=== PATIENT | male | born 1970 | race Two or more races ===

== ENCOUNTER 2023-10-08 13:34 | Emergency (ER) | payer OTHER, SELFPAY ==
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
[2023-10-08 13:47] VITALS: BP 138/90; PULSE 64; O2SAT 96; BMI 34.6
[2023-10-08 13:50] VITALS: BP 133/84; PULSE 78; RESP 16; O2SAT 98
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
[2023-10-08] MEDS: Cyclobenzaprine HCl 10 MG TABLET PO (14:07)
[2023-10-08] MEDS: Acetaminophen 325 MG TABLET 975 MG PO (14:07)
--- NOTE | 2023-10-08 14:09 | PC.NURSE ---
medication administered per provider order. will reassess pain level. pt awaiting CT scan/xray at this time. call rajan placed within reach.
[2023-10-08 16:19] VITALS: BP 119/77; PULSE 68; RESP 16; O2SAT 99
[2023-10-08] MEDS: Ketorolac Tromethamine 60 MG/2 ML VIAL IM (16:24)
--- NOTE | 2023-10-08 16:32 | PC.NURSE ---
vss and up to date. medication administered per provider order. will reassess pain level shortly. pt awaiting results from xray at this time.
== END 2023-10-08 18:15 | disposition home or self-care (01) ==
PROVIDERS: Emergency Provider Emergency Medicine; PCP Student in an Organized Health Care Education/Training Program
DX: Z04.1 Encounter for examination and observation following transport accident (principal); M54.50 Low back pain, unspecified; M79.18 Myalgia, other site
CPT/HCPCS: 70450; 72100; 72125; 96372; 99284; J1885